=== PATIENT | male | born 1975 | race Caucasian/White ===

== ENCOUNTER → 2017-12-14 | Outpatient (CLI) | payer BC ==
--- NOTE | 2017-12-15 12:03 | PCVCIMAG ---
APPROVED REPORT Study performed: 12/14/2017 15:50:15 Exam: Stress Echocardiogram Indication: chest pain, hyperlipidema Patient Location: Echo lab Stress Nurse: Priyanka Wong RN Status: routine Ht: 6 ft 2 in HR: 49 bpm BP: 120/84 mmHg Medical History Medical History: chest pain Exercise History: Physically active Procedure The patient underwent an Exercise Stress Test using the Willis Protocol. Blood pressure, heart rate, and EKG were monitored. An Echocardiogram was performed by tire maintenance technician in four stages in quad fashion. At peak stress, four selected images were obtained and placed side by side with resting images for comparison. Stress Test Details Stress Test: Exercise stress testing was performed using a Willis protocol. HR Resting HR: 49 bpmMax Heart Rate (APMHR): 180 bpm Max HR Achieved: 171 bpmTarget HR (85% APMHR): 153 bpm % of APMHR: 95 HR response to stress: Normal HR response to stress BP Resting BP: 120/84 mmHg Max BP: 168/90 mmHg ECG Resting ECG: Sinus Rhythm Stress ECG: Sinus Rhythm Recovery ECG: Sinus Rhythm Clinical Reason for Termination: Maximal effort Exercise duration: 13 min 27 sec Highest Stage Achieved: Stage 5: 5.0 mph at 18% grade. Exercise capacity: 17.20 METs Overall Exercise Capacity for Age: Good Stress ECG Conclusion 1. SUBJECTIVELY NEGATIVE FOR ISCHEMIA 2. ELECTROCARDIOGRAPHICALLY NEGATIVE FOR ISCHEMIA 3. SATISFACTORY FUNCTIONAL CAPACITY Pre-Stress Echo The resting Echocardiogram showed normal left ventricular contractility with an estimated Ejection Fraction of about 60-65%. Normal wall motion in all segments on baseline images. Post-Stress Echo The stress Echocardiogram showed normal left ventricular contractility with an estimated Ejection Fraction of about 65-70%. Normal augmentation of wall motion in all segments on post stress images. Clinical No clinical or ECG evidence for ischemia. Conclusion Clinical Response: Non-ischemic Exercise Capacity: Superior Stress ECG Response: Non-ischemic Stress Echo Images: Non-ischemic The left ventricle is normal in size and wall thickness in both the rest and stress images. 1. LOW RISK STUDY Other Information Study Quality: Good <Conclusion> The left ventricle is normal in size and wall thickness in both the rest and stress images. 1. LOW RISK STUDY
== END | disposition home or self-care (01) ==
LOC: PCVCIMAG 16:56
PROVIDERS: ATTEND Internal Medicine
DX: E78.5 Hyperlipidemia, unspecified (principal); R07.9 Chest pain, unspecified
CPT/HCPCS: 93325; 93351